=== PATIENT | female | born 1980 | race American Indian/Alaskan Native ===

== ENCOUNTER 2023-02-17 17:27 | Observation (INO) ==
[2023-02-17] MEDS ORDERED: CMCS: Buprenorphine 15 MCG PATCH(NF) 15 MCG/HR PATCH (15 MG TOTAL) TRANSDERM SCH (20:00)
[2023-02-17] MEDS ORDERED: Orphenadrine Citrate INJ 30 mg/ml 2 ml VIAL (60 mg) IV ONE (20:21)
[2023-02-17] MEDS ORDERED: Acetaminophen IV 1 GM/100ML 1,000 MG/100 ML BAG IV ONE (20:21)
[2023-02-18] MEDS ORDERED: Acetaminophen IV 1 GM/100ML 1,000 MG/100 ML BAG IV ONE (04:31)
[2023-02-18] MEDS ORDERED: Morphine 4 MG/ML VIAL (1 ml) IV ONE (05:52)
[2023-02-18] MEDS ORDERED: BUTRANS 15 MCG TRANSDERM SCH (08:45)
[2023-02-18 09:57] LABS: ABS Eosinophils 0.1 10^3/uL (0.0-0.5); ABS Lymphocytes 2.1 10^3/uL (1.0-4.8); ABS Monocytes 0.6 10^3/uL (0.0-0.9); ABS Neutrophils 4.5 10^3/uL (1.5-7.6); Eosinophil % 1.4 %; Hematocrit 34.7 % (35-45); Hemoglobin 11.9 g/dL (11.5-14.3); Lymphocyte % 28.8 %; Mean Corpuscular Hemoglobin 31.2 pg (27-33); Mean Corpuscular Hgb Conc 34.2 g/dL (31-36); Mean Corpuscular Volume 91.4 fL (80-97); Mean Platelet Volume 7.3 fL (7.5-11.2); Platelet Count 350 10^3/uL (150-450); Red Cell Distribution Width 14.8 % (12-17); White Blood Count 7.3 10^3/uL (3.8-11.8)
[2023-02-18] MEDS ORDERED: PTO: Cariprazine 1.5 mg CAP (NF) PO SCH (10:00)
[2023-02-18 10:22] LABS: Albumin 4.2 g/dL (3.2-5.2); Albumin/Globulin Ratio 1.5 (1-3); Creatinine, Serum 0.7 mg/dL (0.51-0.95); Globulin 2.8 g/dL (2-4); Potassium 3.4 mmol/L (3.5-5.0); Total Bilirubin 0.3 mg/dL (0.2-1.0); eGFR CKD-EPI 112.1 (>60)
[2023-02-18] MEDS ORDERED: Potassium Chloride LIQUID 20 MEQ/15 ML LIQUID PO ONE (10:40)
[2023-02-18] MEDS ORDERED: Albuterol HFA INHALER 8 gm MDI INH PRN (11:52)
[2023-02-18] MEDS: CMCS: Meloxicam 7.5 mg TAB (NF) PO SCH (12:35)
[2023-02-18] MEDS: Enoxaparin 40 MG/0.4 ML SYR SUBCUT SCH (12:36)
[2023-02-18] MEDS: Mometasone/Formoter 200/5 MDI INH SCH (19:09)
[2023-02-18] MEDS: Senna TAB 8.6 mg TAB PO PRN (21:10)
[2023-02-18] MEDS: Morphine ORAL.SOLN 10 mg 2 mg/ml UDC 5 ml (10 mg) PO PRN (21:11)
[2023-02-18] MEDS: PTO: Cariprazine 1.5 mg CAP (NF) PO SCH (22:03)
[2023-02-19] MEDS: Morphine ORAL.SOLN 10 mg 2 mg/ml UDC 5 ml (10 mg) PO PRN ×5 (03:14→20:39)
[2023-02-19 06:32] LABS: Calcium 9.2 mg/dL (8.6-10.3); Potassium 4.1 mmol/L (3.5-5.0)
[2023-02-19 06:37] LABS: Creatinine, Serum 0.66 mg/dL (0.51-0.95); eGFR CKD-EPI 113.7 (>60)
[2023-02-19] MEDS: Mometasone/Formoter 200/5 MDI INH SCH ×2 (07:43→19:37)
[2023-02-19] MEDS: CMCS: Meloxicam 7.5 mg TAB (NF) PO SCH (11:10)
[2023-02-19] MEDS: Enoxaparin 40 MG/0.4 ML SYR SUBCUT SCH (11:13)
[2023-02-19] MEDS: Senna TAB 8.6 mg TAB PO PRN (15:53)
[2023-02-19] MEDS: Polyethylene Glycol 3350 17 GM PACKET PO PRN (15:57)
[2023-02-19] MEDS ORDERED: Magnesium CITRATE LIQ 300 ML BTL PO ONE (16:29)
[2023-02-19] MEDS: PTO: Cariprazine 1.5 mg CAP (NF) PO SCH (20:46)
[2023-02-19] MEDS ORDERED: Senna TAB 8.6 mg TAB PO SCH (21:00)
[2023-02-20] MEDS: Morphine ORAL.SOLN 10 mg 2 mg/ml UDC 5 ml (10 mg) PO PRN ×3 (02:06→10:09)
[2023-02-20] MEDS: Mometasone/Formoter 200/5 MDI INH SCH (07:39)
[2023-02-20] MEDS: CMCS: Meloxicam 7.5 mg TAB (NF) PO SCH (09:57)
[2023-02-20] MEDS: Enoxaparin 40 MG/0.4 ML SYR SUBCUT SCH (09:59)
[2023-02-20] MEDS: Polyethylene Glycol 3350 17 GM PACKET PO PRN (10:09)
[2023-02-20 10:34] VITALS: BP 117/53
== END 2023-02-20 15:47 | disposition home or self-care (01) ==
LOC: EDHOLD 17:27 → ED 17:27 → SUATTDRO 02-18 08:04 → MEDTELE 02-18 09:40
PROVIDERS: ADMIT Internal Medicine; ATTEND Internal Medicine